=== PATIENT | female | born 1930 | race Caucasian/White ===

== ENCOUNTER → 2016-07-14 14:28 | Outpatient (CLI) | payer MEDICARE | END | disposition home or self-care (01) | LOC: D.CT 14:28 | DX: J18.9 Pneumonia, unspecified organism (principal) ==

== ENCOUNTER 2017-09-09 21:29 | Emergency (ER) | payer MEDICARE ==
[~2017-09-09] VITALS: Ht 162.6 cm; Wt 63.6 kg
[2017-09-09 21:53] VITALS: Ht 162.6 cm; Wt 63.6 kg
[2017-09-09] MEDS ORDERED: NORMODYNE / TR100 MG (21:56)
[2017-09-09] MEDS ORDERED: HYDROCHLOROTH12.5 M1 (21:56)
[2017-09-09] MEDS ORDERED: PRAVACHOL40 MG PO (21:56)
[2017-09-09] MEDS ORDERED: CATAPRES0.1 MG PO (21:56)
[2017-09-09] MEDS ORDERED: SYNTHROID25 MCG (21:57)
[2017-09-09] MEDS ORDERED: XANAX0.5 MG PO (21:57)
[2017-09-09] MEDS ORDERED: AMBIEN5 MG PO (21:57)
[2017-09-09 22:49] LABS: APPEARANCE CLEAR (CLEAR); BILIRUBIN NEGATIVE (NEGATIVE); COLOR YELLOW (YELLOW); GLUCOSE NEGATIVE (NEGATIVE); KETONE NEGATIVE (NEGATIVE); NITRITE NEGATIVE (NEGATIVE); PROTEIN NEGATIVE (NEGATIVE); RED CELLS - URINE OCC /hpf (0-5); UROBILINOGEN NORMAL (NORMAL); WHITE CELLS - URINE OCC /hpf (0-5)
[2017-09-10 01:31] VITALS: BP 164/87
== END 2017-09-10 01:31 | disposition home or self-care (01) ==
LOC: D.ER 21:29
PROVIDERS: Family Medicine
DX: T50.905A Adverse effect of unspecified drugs, medicaments and biological substances, initial encounter (principal); Y92.019 Unspecified place in single-family (private) house as the place of occurrence of the external cause; I10 Essential (primary) hypertension

== ENCOUNTER 2018-03-03 22:43 | Inpatient (IN) | payer MEDICARE ==
[~2018-03-03] VITALS: Ht 162.6 cm; Wt 50.0 kg
--- NOTE | ~2018-03-03 | EC ---
PATIENT:SUZANNE LUIS DATE OF SERVICE: 03/04/18 SEX: F MEDICAL RECORD: [id number] DATE OF : [birth year] LOCATION:D. D.120 AGE OF PATIENT: 87 ADMISSION DATE: 03/04/18 REFERRING PHYSICIAN: INTERPRETING PHYSICIAN: YONI ARIZA MD ECHOCARDIOGRAM REPORT ECHO CHARGES 4 ECHO COMPLETE Date: 03/04/18 CLINICAL DIAGNOSIS: PERICARDIAL EFFUSION ECHOCARDIOGRAPHIC MEASUREMENTS (adult normal given) AC root (d.<3.7cm) 3.1 cm LV Septum d (<1.2 cm> 1.4 cm Valve Excursion 1.7 cm LV Septum (systole) 1.9 cm Left Atria (s.<4.0cm> 4.3 cm LVPW d(<1.2cm) 1.3 cm RV (d.<2.3cm) 1.6 cm LVPW (sytole) 2.1 cm LV diastole(<5.6CM) 4.9 cm MV E-F(>70mm/sec) cm LV systole 2.2 cm LVOT Diameter 1.5 cm MV exc.(>10mm) cm Est.ejection fraction (50-75%) % DOPPLER: LVIT cm/sec A 42.0 cm/sec E 104 cm/sec LA cm/sec RVSP 41.0 mmHg LVOT 144 cm/sec AOP1/2T m/s Asc. Ao 169 cm/sec RVOT 93.0 cm/sec RA cm/sec PA 106 cm/sec AV Gradient Peak 11.4 mmHg AV Mean 5.0 mmHg AV Area 1.5 cm MV Gradient Peak 4.5 mmHg MV Mean 1.3 mmHg MV Area cm COMMENTS: Parking Worker: Wai CALDERONOE Art Historian: 1 Dr. Ariza TAPE# PACS Pericardial Effusion N DATE OF SERVICE: 03/04/2018 PROCEDURE: Echocardiogram. FINDINGS: 1. Left ventricular chamber size is within normal limits. Left ventricular systolic function is normal. Overall ejection fraction estimated at 65%. 2. Left atrium is enlarged at 4.3 cm. Right atrium and right ventricle chamber sizes are within normal limits. 3. Valvular structures have normal structure and motion. ECHOCARDIOGRAM REPORT [id number] SUZANNE LUIS 4. Doppler interrogation reveals mild aortic insufficiency, moderate mitral regurgitation, mild tricuspid regurgitation, no other valvular insufficiency or stenosis. Pulmonary systolic pressure is estimated 41 mmHg. 5. No evidence of pericardial effusion or left ventricular thrombus. TRANSINT:[id number] Voice Confirmation ID: [id number] DOCUMENT ID: [id number] YONI ARIZA MD at 1457 CC: [id number] DICTATION DATE: 03/05/18904 SENIOR GAME DESIGNER: 03/05/18 1020 DIS IN 03/05/18 [place] [address] [place] [address]
--- NOTE | ~2018-03-03 | MORECARE ---
CASE MANAGEMENT DISCHARGE SUMMARY PATIENT: SUZANNE LUIS UNIT: [id number] ADM DATE: 03/04/18 AGE: 87 : [birth year] SEX: F ROOM/BED: D.1209 AUTHOR: TOMÁS AVERY PHYSICIAN: REFERRING PHYSICIAN: GA JACQUES MD DATE OF SERVICE: 03/08/18 Discharge Plan Patient Name: SUZANNE LUIS Facility: [facility]:[place] : 1930 Planned Disposition: Home Anticipated Discharge Date: 03/05/18 Discharge Date: 03/05/2018 Expected LOS: 1 Initial Reviewer: [email or web address] Initial Review Date: 03/08/2018 Generated: 03/08/18 11:18 am Patient Name: SUZANNE LUIS Page 23539 at 1018 All edits/amendments must be made on the electronic document DICTATION DATE: 03/08/18 1017 BAKERY TEAM LEADER: MILANA 03/08/18 1017 RPT#: [id number] DC DATE:03/05/18 STATUS: DIS IN [facility] [address] [place] [address] END OF REPORT
[~2018-03-03 22:43] MED LIST: AMBIEN5 MG PO; CATAPRES0.1 MG PO; HYDROCHLOROTH12.5 M1; NORMODYNE / TR100 MG; PRAVACHOL40 MG PO; SYNTHROID25 MCG; XANAX0.5 MG PO
[2018-03-04] VITALS (10 sets, daily range): BP systolic 137–194; BP diastolic 52–86; Ht 162.6 cm; Wt 50.0 kg
[2018-03-04 00:21] LABS: BASOPHILS 0.2 % (0-2); EOSINOPHILS 0.2 % (0-7); HEMATOCRIT 35.2 % (36.0-48.0); HEMOGLOBIN 12.6 g/dL (12-16); IMMATURE GRANULOCYTES 0.2 % (0-5); LYMPHOCYTES 17.5 % (15-50); MCH 31.9 pg (26.0-34.0); MCHC 35.8 g/dL (31.0-37.0); MCV 89.1 fL (80.0-100.0); MEAN PLATELET VOLUME 10.7 fL (7.4-10.4); MONOCYTES 8.1 % (2-11); NEUTROPHILS 73.8 % (40-80); RBC 3.95 10x6/uL (4.00-5.40); RDW 12.7 % (11.5-14.5); WBC 5.1 10x3/uL (4.8-10.8)
[2018-03-04 00:23] LABS: PLATELET COUNT 234 10x3/uL (130-400)
[2018-03-04 00:35] LABS: ALBUMIN 3.6 g/dL (3.4-5.0); ANION GAP 13.5 mmol/L (8-16); BILIRUBIN - TOTAL 0.48 mg/dL (0.2-1.3); CALCIUM 9.2 mg/dL (8.5-10.1); CARBON DIOXIDE 24.1 mmol/L (21.0-32.0); CREATININE - SERUM 0.9 mg/dL (0.6-1.3); POTASSIUM - SERUM 3.6 mmol/L (3.5-5.1); PROTEIN - SERUM 7.2 g/dL (6.4-8.2)
[2018-03-04 00:37] LABS: INR 0.97 (0.85-1.17); PROTIME 12.4 SECONDS (11.6-15.0)
[2018-03-04 01:16] LABS: APPEARANCE CLEAR (CLEAR); BILIRUBIN NEGATIVE (NEGATIVE); COLOR YELLOW (YELLOW); GLUCOSE 50 mg/dL (NEGATIVE); KETONE MODERATE mg/dL (NEGATIVE); NITRITE NEGATIVE (NEGATIVE); PROTEIN NEGATIVE (NEGATIVE); SPECIFIC GRAVITY 1.015 (1.005-1.020); UROBILINOGEN NORMAL (NORMAL)
[2018-03-04 09:51] LABS: ANION GAP 13.6 mmol/L (8-16); CALCIUM 8.7 mg/dL (8.5-10.1); CARBON DIOXIDE 24.8 mmol/L (21.0-32.0); CREATININE - SERUM 0.9 mg/dL (0.6-1.3); POTASSIUM - SERUM 3.4 mmol/L (3.5-5.1)
[2018-03-05] VITALS: BP 124/47
[2018-03-05 04:00] VITALS: BP 154/63
[2018-03-05 07:25] VITALS: BP 102/60
[2018-03-05 07:27] LABS: BASOPHILS 0.3 % (0-2); EOSINOPHILS 0.2 % (0-7); HEMATOCRIT 31.9 % (36.0-48.0); HEMOGLOBIN 10.9 g/dL (12-16); IMMATURE GRANULOCYTES 0.3 % (0-5); LYMPHOCYTES 23.5 % (15-50); MCH 31.1 pg (26.0-34.0); MCHC 34.2 g/dL (31.0-37.0); MCV 90.9 fL (80.0-100.0); MEAN PLATELET VOLUME 10.7 fL (7.4-10.4); MONOCYTES 15.9 % (2-11); NEUTROPHILS 59.8 % (40-80); PLATELET COUNT 224 10x3/uL (130-400); RBC 3.51 10x6/uL (4.00-5.40); RDW 13.5 % (11.5-14.5); WBC 5.8 10x3/uL (4.8-10.8)
[2018-03-05 07:48] LABS: ANION GAP 11.7 mmol/L (8-16); CALCIUM 8.5 mg/dL (8.5-10.1); CARBON DIOXIDE 25.5 mmol/L (21.0-32.0); CREATININE - SERUM 0.8 mg/dL (0.6-1.3); POTASSIUM - SERUM 3.2 mmol/L (3.5-5.1)
[2018-03-05 11:32] VITALS: BP 142/46
[2018-03-05] MEDS ORDERED: PROTONIX40 MG PO (13:23)
[2018-03-05] MEDS ORDERED: MIRALAX17 GM PO (13:23)
== END 2018-03-05 14:40 | disposition home or self-care (01) | DRG 641 ==
LOC: D.ER 22:43 → D.M3 03-04 01:26 → OBSVTIME 03-04 01:26 → D.M3 03-04 12:42
PROVIDERS: Emergency Medicine; Internal Medicine Nephrology
DX: E87.1 Hypo-osmolality and hyponatremia (principal); I31.3 Pericardial effusion (noninflammatory); T47.4X5A Adverse effect of other laxatives, initial encounter; I10 Essential (primary) hypertension; R73.9 Hyperglycemia, unspecified; K21.9 Gastro-esophageal reflux disease without esophagitis; K57.90 Diverticulosis of intestine, part unspecified, without perforation or abscess without bleeding; K59.09 Other constipation; E03.9 Hypothyroidism, unspecified; D64.9 Anemia, unspecified

== ENCOUNTER 2018-06-27 00:12 | Observation (INO) | payer MEDICARE ==
[2018-06-27] VITALS (8 sets, daily range): BP systolic 115–195; BP diastolic 57–82; BMI 18.9
[~2018-06-27 00:12] MED LIST changes: +MIRALAX17 GM PO; -NORMODYNE / TR100 MG; +NORMODYNE / TR100 MG PO; +PROTONIX40 MG PO; -SYNTHROID25 MCG; +SYNTHROID25 MCG PO
[2018-06-27 00:53] LABS: HEMATOCRIT 34.7 % (36.0-48.0); HEMOGLOBIN 11.7 g/dL (12-16); LYMPHOCYTES 28.7 % (15-50); MCH 31.9 pg (26.0-34.0); MCHC 33.7 g/dL (31.0-37.0); MCV 94.6 fL (80.0-100.0); MEAN PLATELET VOLUME 10.3 fL (7.4-10.4); NEUTROPHILS 59.4 % (40-80); PLATELET COUNT 181 10x3/uL (130-400); RBC 3.67 10x6/uL (4.00-5.40); WBC 5.8 10x3/uL (4.8-10.8)
[2018-06-27 01:13] LABS: APTT 27.6 SECONDS (22.8-39.4); INR 0.98 (0.85-1.17); PROTIME 12.5 SECONDS (11.6-15.0)
[2018-06-27 01:19] LABS: ALBUMIN 3.4 g/dL (3.4-5.0); ALKALINE PHOSPHATASE 57 U/L (46-116); ALT (SGPT) 14 U/L (10-68); BILIRUBIN - TOTAL 0.18 mg/dL (0.2-1.3); CALC OSMOLALITY 283 mosm/kg (275-300); CARBON DIOXIDE 29.8 mmol/L (21.0-32.0); CHLORIDE - SERUM 103 mmol/L (98-107); CREATININE - SERUM 1.1 mg/dL (0.6-1.3); GLUCOSE 111 mg/dL (74-106); POTASSIUM - SERUM 3.6 mmol/L (3.5-5.1); PROTEIN - SERUM 6.9 g/dL (6.4-8.2); SODIUM 141 mmol/L (136-145); UREA NITROGEN 17 mg/dL (7-18); eGFR NON AFRICAN AMERICAN 50 mL/min (90-120)
[2018-06-27 01:30] LABS: CKMB 0.4 U/L (0.0-3.6); CREATINE KINASE 53 UL (21-215); MAGNESIUM - SERUM 2.3 mg/dL (1.8-2.4); THYROID STIMULATING HORMONE 5.95 uIU/mL (0.36-3.74)
[2018-06-27 01:31] LABS: TROPONIN-I < 0.017 ng/mL (0.000-0.060)
[2018-06-27 07:23] LABS: ALBUMIN 3.3 g/dL (3.4-5.0); ALKALINE PHOSPHATASE 52 U/L (46-116); ALT (SGPT) 11 U/L (10-68); BILIRUBIN - TOTAL 0.32 mg/dL (0.2-1.3); CALC OSMOLALITY 279 mosm/kg (275-300); CALCIUM 8.8 mg/dL (8.5-10.1); CARBON DIOXIDE 28.4 mmol/L (21.0-32.0); CHLORIDE - SERUM 104 mmol/L (98-107); GLUCOSE 116 mg/dL (74-106); POTASSIUM - SERUM 4.1 mmol/L (3.5-5.1); PROTEIN - SERUM 6.6 g/dL (6.4-8.2); SODIUM 139 mmol/L (136-145); UREA NITROGEN 15 mg/dL (7-18); eGFR NON AFRICAN AMERICAN 55 mL/min (90-120)
[2018-06-27 07:25] LABS: TROPONIN-I < 0.017 ng/mL (0.000-0.060)
[2018-06-27 07:31] LABS: BASOPHILS 0.1 % (0-2); EOSINOPHILS 0.6 % (0-7); HEMATOCRIT 33.6 % (36.0-48.0); HEMOGLOBIN 11.2 g/dL (12-16); IMMATURE GRANULOCYTES 0.1 % (0-5); LYMPHOCYTES 14.1 % (15-50); MCH 30.9 pg (26.0-34.0); MCHC 33.3 g/dL (31.0-37.0); MCV 92.8 fL (80.0-100.0); MEAN PLATELET VOLUME 11.2 fL (7.4-10.4); MONOCYTES 9.6 % (2-11); NEUTROPHILS 75.5 % (40-80); PLATELET COUNT 207 10x3/uL (130-400); RBC 3.62 10x6/uL (4.00-5.40); RDW 13.1 % (11.5-14.5)
[2018-06-27] MEDS ORDERED: NORMODYNE / TR100 MG PO (12:39)
[2018-06-28 00:47] VITALS: BP 143/52
[2018-06-28 04:00] VITALS: BP 142/50
[2018-06-28 07:07] LABS: BASOPHILS 0.4 % (0-2); HEMATOCRIT 35.3 % (36.0-48.0); HEMOGLOBIN 11.7 g/dL (12-16); LYMPHOCYTES 41.8 % (15-50); MCH 31.2 pg (26.0-34.0); MCHC 33.1 g/dL (31.0-37.0); MCV 94.1 fL (80.0-100.0); MEAN PLATELET VOLUME 10.9 fL (7.4-10.4); MONOCYTES 12.9 % (2-11); NEUTROPHILS 42.9 % (40-80); PLATELET COUNT 215 10x3/uL (130-400); RBC 3.75 10x6/uL (4.00-5.40); RDW 13.5 % (11.5-14.5)
[2018-06-28 07:25] LABS: ALBUMIN 3.3 g/dL (3.4-5.0); ANION GAP 9.3 mmol/L (8-16); BILIRUBIN - TOTAL 0.52 mg/dL (0.2-1.3); CALCIUM 8.8 mg/dL (8.5-10.1); CARBON DIOXIDE 30.4 mmol/L (21.0-32.0); POTASSIUM - SERUM 3.7 mmol/L (3.5-5.1); PROTEIN - SERUM 6.8 g/dL (6.4-8.2)
[2018-06-28] MEDS ORDERED: ASPIRIN325 MG PO (13:43)
[2018-06-28] MEDS ORDERED: HCTZ25 MG PO (13:44)
--- NOTE | 2018-06-29 08:51 | MORECARE ---
CASE MANAGEMENT DISCHARGE SUMMARY PATIENT: SUZANNE LUIS UNIT: [id number] ADM DATE: 06/27/18 AGE: 87 : [birth year] SEX: F ROOM/BED: D.5350 AUTHOR: TOMÁS AVERY PHYSICIAN: REFERRING PHYSICIAN: GA JACQUES MD DATE OF SERVICE: 06/29/18 Discharge Plan Patient Name: SUZANNE LUIS Facility: [facility]:[place] : 1930 Planned Disposition: Home Anticipated Discharge Date: 06/28/18 Discharge Date: 06/28/2018 Expected LOS: 1 Initial Reviewer: [email or web address] Initial Review Date: 06/29/2018 Generated: 06/29/18 9:50 am Coverage Notice Reviewer: [email or web address] Shanika Connell Notice Issued Date-Time: 06/27/2018 16:27 Notice Type: Medicare Outpatient Observation Notice Notice Delivered To: Family Member Relationship to Patient: Spouse Processing Engineer Name: ALICE LUIS Delivery Method: HAND - Hand Delivered Maryjane Days: Prior Verbal Notification: Recipient Understood Notice: Yes Recipient Signature: Yes Med Rec Note Co-signed by Attending: Coverage Notice Comment: PER PATIENTS REQUEST, CINDY DISCUSSED WITH HER SPOUSE . PT UNABLE TO UNDERSTAND ME SECONDARY TO DEGREE OF UPPER [place] WITH NO ASSISTIVE DEVICES Patient Name: SUZANNE LUIS Page 06375 at 0851 All edits/amendments must be made on the electronic document DICTATION DATE: 06/29/1850 CAN WASHER: DM 06/29/1850 RPT#: [id number] DC DATE:06/28/18 STATUS: DIS IN [facility] [address] [place] [address] END OF REPORT
== END 2018-06-28 15:48 | disposition home or self-care (01) ==
LOC: D.ER 00:12 → D.M2 03:24
PROVIDERS: Family Medicine; ADMIT Internal Medicine Nephrology
DX: R51 Headache (principal); I10 Essential (primary) hypertension; E03.9 Hypothyroidism, unspecified; K59.00 Constipation, unspecified; R47.89 Other speech disturbances; R11.0 Nausea; F41.9 Anxiety disorder, unspecified; K21.9 Gastro-esophageal reflux disease without esophagitis

== ENCOUNTER 2018-08-10 18:25 | Observation (INO) | payer MEDICARE ==
[~2018-08-10] VITALS: Ht 157.5 cm; Wt 48.6 kg
--- NOTE | ~2018-08-10 | DS ---
PATIENT:SUZANNE LUIS :[birth year] MEDICAL RECORD: [id number] DISCHARGE SUMMARY ADMISSION DATE: 08/10/18 DISCHARGE DATE: 08/11/18 DISCHARGE DIAGNOSES: 1. Tachycardia. 2. Palpitations. 3. Hypertension. 4. Irritable bowel syndrome. HOSPITAL COURSE: Ms. Luis presents with palpitations and tachycardia. She was recently started on Bentyl for her irritable bowel syndrome. This is a side effect of the Bentyl. She was given Lopressor times 2 doses. Her tachycardia resolved and she was discharged home to continue her current medications with the exception of the Bentyl. TRANSINT:[id number] Voice Confirmation ID: [id number] DOCUMENT ID: [id number] YONI HINES MD CC: [id number] DICTATION DATE: 08/11/18 1153 SENIOR COMPLIANCE OFFICER: 08/12/18 0119 DIS IN 08/11/18 [facility] [address] [place] [address]
--- NOTE | ~2018-08-10 | HP ---
PATIENT: SUZANNE CORRIGAN MEDICAL RECORD: [id number] ACCOUNT: [id number] LOCATION:[address] : [birth year] ADMISSION DATE: 08/10/18 PCP: JANET HWANG MD HISTORY AND PHYSICAL EXAMINATION DATE OF ADMISSION: 08/10/2018. DIAGNOSES: 1. Palpitations. 2. Tachycardia. 3. Chest pain. 4. Hypertension. 5. Irritable bowel syndrome. HISTORY OF PRESENT ILLNESS: Mrs. Corrigan is followed by us for hypertension. She has not had a history of ischemic heart disease. For the past 2 days, she has had tachycardia with heart rates in the 130s. This has been associated with a minor chest discomfort. Her troponin is normal. Her EKG shows sinus tachycardia, but no ST-T abnormalities. She was recently started on Bentyl for irritable bowel syndrome 2 days ago. This correlated with the beginning of the tachycardia. PHYSICAL EXAMINATION: GENERAL APPEARANCE: Well-nourished, well-developed, appears stated age. Level of distress, comfortable. PSYCHIATRIC: Mental status, alert, normal affect. Orientation, oriented to time, place and person. EYES: Lids and conjunctiva, noninjected. No discharge, no pallor. ENT: Lips, teeth, gums, normal dentition. Oropharynx, no cyanosis, no pallor. NECK: Carotid arteries, bilateral normal upstroke, no bruits, no thrills. JUGULAR VEINS: No jugular venous pressure or distention. CERVICAL LYMPH NODES: Nontender, nonenlarged. THYROID: Not enlarged. Nontender. No nodules. LUNGS: Respiratory effort, unlabored. CHEST: Normal curvature. No thoracic deformity. No chest wall tenderness. Percussion, resonant. Auscultation, clear. No wheezes, no rales, no rhonchi. CARDIOVASCULAR: Precordial exam, nondisplaced. No heaves or pericardial thrills. Rate and rhythm, regular. Heart sounds, normal S1, normal S2. No S3, no gallop, no rub. Systolic murmur, not heard. Diastolic murmur, not heard. EXTREMITIES: No cyanosis, no edema. Peripheral pulses, full and equal in all extremities, except as noted. No bruits appreciated. ABDOMEN: Soft, nondistended. Normal aorta. No bruit. Nontender. No masses. Liver, nontender, no hepatomegaly. Spleen, nontender, no splenomegaly. MUSCULOSKELETAL: No joint tenderness. No joint swelling. No erythema. NEUROLOGICAL: Normal gait, normal strength, normal tone. SKIN: Warm and dry. OVERALL IMPRESSION: Tachycardia as a side effect of the Bentyl. Her troponin is normal. No ST-T changes. We will beta block her to solve the tachycardia and stop the Bentyl. TRANSINT:[id number] Voice Confirmation ID: [id number] DOCUMENT ID: [id number] HISTORY AND PHYSICAL [id number] SUZANNE CORRIGAN JEFFREY MD CC: [id number] DICTATION DATE: 08/11/18 1152 JUKEBOX OPERATOR: 08/11/18 1214 DIS IN 08/11/18 [place] [id number] [place] [id number]
[~2018-08-10 18:25] MED LIST changes: +ASPIRIN325 MG PO; +HCTZ25 MG PO
[2018-08-10 18:54] LABS: HEMATOCRIT 37.7 % (36.0-48.0); HEMOGLOBIN 12.7 g/dL (12-16); MCH 31.6 pg (26.0-34.0); MCHC 33.7 g/dL (31.0-37.0); MCV 93.8 fL (80.0-100.0); MEAN PLATELET VOLUME 10.6 fL (7.4-10.4); PLATELET COUNT 201 10x3/uL (130-400); RBC 4.02 10x6/uL (4.00-5.40); RDW 13.5 % (11.5-14.5); WBC 5.4 10x3/uL (4.8-10.8)
[2018-08-10 19:07] LABS: ALBUMIN 3.6 g/dL (3.4-5.0); ALKALINE PHOSPHATASE 56 U/L (46-116); ALT (SGPT) 15 U/L (10-68); BILIRUBIN - TOTAL 0.22 mg/dL (0.2-1.3); CALC OSMOLALITY 273 mosm/kg (275-300); CALCIUM 9.3 mg/dL (8.5-10.1); CARBON DIOXIDE 29.3 mmol/L (21.0-32.0); CHLORIDE - SERUM 102 mmol/L (98-107); CREATININE - SERUM 1.1 mg/dL (0.6-1.3); GLUCOSE 98 mg/dL (74-106); POTASSIUM - SERUM 4.5 mmol/L (3.5-5.1); SODIUM 136 mmol/L (136-145); UREA NITROGEN 17 mg/dL (7-18); eGFR NON AFRICAN AMERICAN 50 mL/min (90-120)
[2018-08-10 19:09] LABS: APTT 27.8 SECONDS (22.8-39.4); INR 1.01 (0.85-1.17); PROTIME 12.8 SECONDS (11.6-15.0)
--- NOTE | 2018-08-10 19:11 | NUR ---
EKG COMPLETED AT 1837 - SINUS TACHYCARDIA
[2018-08-10 19:19] LABS: CKMB 0.6 U/L (0.0-3.6); CREATINE KINASE 70 UL (21-215); MAGNESIUM - SERUM 2.3 mg/dL (1.8-2.4)
[2018-08-10 19:21] LABS: TROPONIN-I < 0.017 ng/mL (0.000-0.060)
--- NOTE | 2018-08-10 19:23 | NUR ---
PT GIVEN WATER TO DRINK.
[2018-08-10 19:27] LABS: BASOPHILS 1 % (0-2); EOSINOPHILS 6 % (0-7); LYMPHOCYTES 22 % (15-50); MONOCYTES 18 % (2-11); NEUTROPHILS 53 % (40-80); PLATELET ESTIMATE NORMAL
[2018-08-10 19:30] VITALS: BP 158/117
[2018-08-10 19:45] LABS: T4 THYROXIN - FREE 0.98 ng/dL (0.76-1.46); THYROID STIMULATING HORMONE 5.19 uIU/mL (0.36-3.74)
[2018-08-10 20:30] VITALS: BP 154/95
--- NOTE | 2018-08-10 20:41 | NUR ---
PT AMBULATED TO RESTROOM WITH NURSE ASSIST.
[2018-08-10 22:51] VITALS: BP 139/84; Ht 157.5 cm; Wt 48.6 kg
[2018-08-11 00:30] VITALS: BP 139/84
[2018-08-11 03:44] LABS: CKMB 1.3 U/L (0.0-3.6); CREATINE KINASE 54 UL (21-215); TROPONIN-I 0.027 ng/mL (0.000-0.060)
[2018-08-11 05:30] VITALS: BP 109/63
[2018-08-11 08:02] VITALS: BP 101/76
[2018-08-11 09:09] LABS: CREATINE KINASE 53 UL (21-215); TROPONIN-I 0.039 ng/mL (0.000-0.060)
--- NOTE | 2018-08-11 10:55 | MORECARE ---
CASE MANAGEMENT DISCHARGE SUMMARY PATIENT: SUZANNE LUIS UNIT: [id number] ADM DATE: 08/10/18 AGE: 87 : [birth year] SEX: F ROOM/BED: D.8510 AUTHOR: TOMÁS AVERY PHYSICIAN: REFERRING PHYSICIAN: YONI HINES MD DATE OF SERVICE: 08/11/18 Discharge Plan Patient Name: SUZANNE LUIS Facility: [facility]:[place] : 1930 Planned Disposition: Home Anticipated Discharge Date: 08/11/18 Discharge Date: Expected LOS: 1 Initial Reviewer: [email or web address] Initial Review Date: 08/11/2018 Generated: 08/11/18 11:55 am Patient Name: SUZANNE LUIS Page 24241 at 1055 All edits/amendments must be made on the electronic document DICTATION DATE: 08/11/18 1054 CREDIT RATING INSPECTOR: MILANA 08/11/18 1054 RPT#: [id number] DC DATE: STATUS: ADM IN [facility] [address] [place] [address] END OF REPORT
--- NOTE | 2018-08-11 11:52 | NUR ---
IV AND TELEMETRY DCD. DC PLANS GIVEN. UNDERSTANDING VOICED. ESCORTED TO CAR BY W/C.
== END 2018-08-11 11:53 | disposition home or self-care (01) ==
LOC: D.ER 18:25 → D.M2 21:51 → OBSVTIME 21:51 → D.M2 21:51 → D.SDCHOLD 08-11 09:41 → D.M2 08-11 09:43
PROVIDERS: Emergency Medicine; ADMIT Internal Medicine Interventional Cardiology; ATTEND Internal Medicine Interventional Cardiology
DX: R00.2 Palpitations (principal); R00.0 Tachycardia, unspecified; R07.9 Chest pain, unspecified; I10 Essential (primary) hypertension; K58.9 Irritable bowel syndrome, unspecified

== ENCOUNTER 2018-09-22 11:50 | Emergency (ER) | payer MEDICARE ==
[~2018-09-22] VITALS: Ht 157.5 cm; Wt 48.6 kg
[2018-09-22 11:56] VITALS: Ht 157.5 cm; Wt 48.6 kg
[2018-09-22 12:21] LABS: BASOPHILS 0.8 % (0-2); EOSINOPHILS 4.4 % (0-7); HEMATOCRIT 35.5 % (36.0-48.0); HEMOGLOBIN 12.1 g/dL (12-16); IMMATURE GRANULOCYTES 0.2 % (0-5); LYMPHOCYTES 28.7 % (15-50); MCH 31.8 pg (26.0-34.0); MCHC 34.1 g/dL (31.0-37.0); MCV 93.2 fL (80.0-100.0); MEAN PLATELET VOLUME 10.9 fL (7.4-10.4); MONOCYTES 13.9 % (2-11); PLATELET COUNT 213 10x3/uL (130-400); RBC 3.81 10x6/uL (4.00-5.40); RDW 14.3 % (11.5-14.5)
[2018-09-22 12:35] LABS: ALBUMIN 3.5 g/dL (3.4-5.0); ALKALINE PHOSPHATASE 56 U/L (46-116); ALT (SGPT) 17 U/L (10-68); BILIRUBIN - TOTAL 0.32 mg/dL (0.2-1.3); CALC OSMOLALITY 274 mosm/kg (275-300); CALCIUM 9.4 mg/dL (8.5-10.1); CARBON DIOXIDE 27.6 mmol/L (21.0-32.0); CHLORIDE - SERUM 103 mmol/L (98-107); GLUCOSE 120 mg/dL (74-106); POTASSIUM - SERUM 4.8 mmol/L (3.5-5.1); PROTEIN - SERUM 6.8 g/dL (6.4-8.2); SODIUM 136 mmol/L (136-145); UREA NITROGEN 17 mg/dL (7-18); eGFR NON AFRICAN AMERICAN 55 mL/min (90-120)
[2018-09-22 12:46] LABS: CKMB 0.4 U/L (0.0-3.6); CREATINE KINASE 61 UL (21-215); MAGNESIUM - SERUM 2.3 mg/dL (1.8-2.4); THYROID STIMULATING HORMONE 2.24 uIU/mL (0.36-3.74); TROPONIN-I < 0.017 ng/mL (0.000-0.060)
[2018-09-22 12:52] LABS: APTT 26.6 SECONDS (22.8-39.4); INR 0.98 (0.85-1.17); PROTIME 12.5 SECONDS (11.6-15.0)
[2018-09-22] MEDS ORDERED: BAYER CHEWABLE81 MG PO (13:07)
[2018-09-22 14:18] VITALS: BP 156/68
== END 2018-09-22 14:19 | disposition home or self-care (01) ==
LOC: D.ER 11:50
PROVIDERS: Family Medicine
DX: F41.9 Anxiety disorder, unspecified (principal); G81.94 Hemiplegia, unspecified affecting left nondominant side; R00.1 Bradycardia, unspecified

== ENCOUNTER 2018-09-23 18:46 | Inpatient (IN) | payer MEDICARE ==
[2018-09-23] VITALS (9 sets, daily range): BP systolic 111–185; BP diastolic 68–120
[~2018-09-23] VITALS: Ht 157.5 cm; Wt 52.2 kg
--- NOTE | ~2018-09-23 | HEMODYNAMI ---
PATIENT:SUZANNE LUIS MEDICAL RECORD: [id number] : [birth year] [id number] ADMISSION DATE: 09/23/18 Generatedon:09/28/201814:33 Patient name: SUZANNE LUIS Patient #: [id number] SSN: : 1930 Date of study: 09/28/2018 Page: Of Hemodynamic Procedure Report Patient Data Patient Demographics Procedure consent was obtained First Name: SUZANNE Gender: Female Last Name: JANELLE : 1930 Middle Initial: M Age: 87 year(s) Patient #: [id number] Race: Unknown Additional ID: [id number] Contact details Address: [address] [place] [address] State: [place] City: [facility] Zip code: [address] Past Medical History Allergies Allergen Reaction Date Comments Reported Other allergy 09/28/2018 AMANDA WELLS Admission Admission Data Admission Date: 09/23/2018 Admission Time: 22:11 Room #: D.2311 Lab Results Lab Result Date: 09/28/2018 Lab Result Time: 1:00 Biochemistry Name Units Result Min Max eGFR ml/min 50 *-(----)-- 90 120 NONAFRICAN Procedure Procedure Types Cath Procedure Diagnostic Procedure PPM/ICD PPM Ventricular Implant Procedure Description Procedure Date Procedure Date: 09/28/2018 Procedure Start Time: 14:09 Procedure End Time: 14:31 Procedure Staff Name Function Julio Mccray MD Performing Physician Patrick Lynn MD Assisting physician Cory Hoffman RT Monitor Mag Reid RT Scrub Santhosh Nuñez RN Nurse Procedure Data Cath Procedure Fluoroscopy Diagnostic fluoroscopy Total fluoroscopy Time: 1.8 time: 1.8 min min Diagnostic fluoroscopy Total fluoroscopy dose: dose: 13.39 mGy 13.39 mGy Contrast Material Contrast Material Type Amount (ml) Isovue 370 0 Estimated blood loss: 5 ml Procedure Complications No complications Procedure Medications Medication Administration Route Dosage Oxygen etCO2 Nasal cannula 2 l/min Vancomycin I.V.P.B 1 g Vancomycin Topical 1 g Irrigation Lidocaine 1% added to field 20 Versed I.V. 1 mg Fentanyl I.V. 50 mcg Hemodynamics Rest HGB: 14 (g/dl) Heart Rate: 37 (bpm) Snapshots Pre Cath Intra NCS Post Cath Vital Signs Time Heart Resp SPO2 etCO2 NIBP Rhythm Pain Sedation Rate (ipm) (%) (mmHg) (mmHg) Status Level (bpm) 14:04:09 36 33 100 0 Measuring Paced (Missing) 10(A) 14:09:24 32 27 100 0 128/46(82) Paced (Missing) 10(A) 14:13:15 33 16 100 0 108/45(74) Paced (Missing) 9(A) 14:17:03 33 18 100 0 102/48(78) Paced (Missing) 9(A) 14:21:02 80 13 100 0 125/64(93) Paced (Missing) 9(A) 14:25:08 60 14 100 0 123/57(87) Paced (Missing) 9(A) 14:28:51 60 19 100 0 119/60(89) Paced (Missing) 10(A) Medications Time Medication Route Dose Verified Delivered Reason Notes Effecti veness by by 14:03:16 Oxygen etCO2 2 Julio Trevizo used for Nasal l/min St Asaf Nuñez financial quantitative analyst cannula 14:03:23 Vancomycin I.V.P.B 1 g Julio Buffie used for MahendraAsaf Nuñez financial quantitative analyst 14:03:31 Vancomycin Topical 1 g Julio Trevizo used for Irrigation St Asaf Nuñez RN procedure 14:05:03 Lidocaine added 20ml Patrick Nguyen for local 1% to vial Rosi Lynn MD anesthetic field 14:11:10 Versed I.V. 1 mg Patrick Trevizo for Rosi Nuñez RN sedation 14:11:16 Fentanyl I.V. 50 Patrick Joinerie for mcg Rosi Nuñez RN sedation Procedure Log Time Note 13:35:24 Santhosh Nuñez RN sent for patient. Start room use. 13:35:26 Time tracking: Regular hours (M-F 7:00 - 5:00) 13:35:30 Plan of Care:Hemodynamics will remain stable., Cardiac rhythm will remain stable., Comfort level will be maintained., Respiratory function will remain adequate., Patient/ family verbilizes understanding of procedure., Procedure tolerated without complication., Recovers from procedure without complications.. 13:35:31 Signed procedure consent form obtained from patient. 13:35:47 Patient allergic to Other allergyPCN, CODEINE 13:36:22 Lab Result : BUN 18 mg/dl 13:36:22 Lab Result : Hemoglobin 14 g/dl 13:36:22 Lab Result : Creatinine 1.1 mg/dl 13:36:22 Lab Result : Hematocrit 41.4 % 13:36:51 Lab Result : eGFR NONAFRICAN 50 ml/min 13:36:57 Use device set ROSI PPM 13:36:59 2-0 Ticron Multipack ([id number]) opened to sterile field. 13:36:59 3-0 Vicryl Single Pack [id number] opened to sterile field. 13:36:59 5-0 Monocryl PS2 [id number] opened to sterile field. 13:37:00 Cautery Tip Making Line Worker opened to sterile field. 13:37:01 Cautery Pushbutton Pencil opened to sterile field. 13:37:01 Mepilex Dressing (018091) opened to sterile field. 13:37:03 Immobilizer Extra Large opened to sterile field. 13:37:21 Medtronic Adapta PPM Single Generator [id number] opened to sterile field. 13:37:32 Medtronic 4074-52 PPM Lead opened to sterile field. 13:49:12 Patient received from ICU to [facility] 3 Alert and oriented. Tansferred to table in Supine position. 13:49:13 Warm blankets applied, and nikko hugger turned on for patient comfort. 13:49:14 Correct patient and procedure confirmed by team. 13:49:14 ECG and BP/O2 sat monitors applied to patient. 14:02:19 Vital chart was started 14:02:21 Baseline sample Acquired. 14:02:37 Rhythm: sinus bradycardia, paced 14:02:38 Full Disclosure recording started 14:02:47 H&P Date Dictated: 09/23/2018 Within 30 days and on chart.. 14:02:49 Pre-procedure instructions explained to patient. 14:02:49 Pre-op teaching completed and patient verbalized understanding. 14:02:52 Family in waiting room. 14:02:54 Patient NPO since Breakfast. 14:02:56 Is the patient allergic to Iodine/contrast media? No. 14:02:59 Is patient on blood thinner?No 14:03:16 Oxygen 2 l/min etCO2 Nasal cannula was administered by Santhosh Nuñez RN; used for procedure; 14:03:23 Vancomycin 1 g I.V.P.B was administered by Santhosh Nuñez RN; used for procedure; 14:03:31 Vancomycin Irrigation 1 g Topical was administered by Santhosh Nuñez RN; used for procedure; 14:03:56 ----Pre-sedation anethsthesia assessment.---- 14:04:00 Previous problem with sedation/anesthesia? No ? 14:05:03 Lidocaine 1% 20ml vial added to field was administered by Patrick Lynn MD; for local anesthetic; 14:05:30 Vital chart was stopped 14:06:06 Left chest area was prepped with chlora-prep and draped in sterile fashion 14:06:08 Alarms reviewed by R. N. 14:06:08 Sharps counted by scrub and verified by R.N. 14:06:24 Physician arrived 14:06:29 --------ALL STOP TIME OUT------ 14:06:29 Final Timeout: patient, procedure, and site verified with staff and physician. All members of the team are in agreement. 14:06:44 Left chest site verified by team. 14:07:03 Fire Safety Assessment: A--An alcohol-based skin anteseptic being used preoperatively., B--The operative or invasive procedure is being performed above the xiphoid process or in the oropharynx., C--Open oxygen or nitrous oxide is being used. 14:07:10 Physical assessment completed. ASA score P 4 - A patient with severe systemic disease that is a constant threat to life as per Julio Mccray MD. 14:07:32 Sedation plan: IV Moderate Sedation Medication:Versed, Fentanyl 14:08:05 Vital chart was started 14:08:19 Procedure started. 14:08:26 Local Offer Networktronic small business representative VINAYAK CORREA present for procedure. 14:09:25 Pre sharps counted by scrub and verified by RN: Sutures: 14; Sponges: 5; Stick needles: 1; Skin needles: 2; Blade: 1; Cautery: 1 14:09:34 Grounding pad site Left thigh. 14:09:36 Grounding pad site free from injury. 14:09:39 Lidocaine 1% was administered to left subclavicular area by Patrick Lynn MD . 14:09:40 Incision made to left subclavicular area. 14:11:10 Versed 1 mg I.V. was administered by Santhosh Nuñez RN; for sedation; 14:11:16 Fentanyl 50 mcg I.V. was administered by Santhosh Nuñez RN; for sedation; 14:13:28 Generator pocket made/opened. 14:13:32 Left subclavian vein accessed with 7Fr Peel Away Sheath. 14:14:13 Ventricular lead inserted and advanced. 14:17:42 Ventricular lead tested. 14:20:40 Peel-a-way sheath was split and removed. 14:20:41 Ventricular lead attachment was completed with 2-0 ticron. 14:20:44 PPM Single was attached to lead(s) and inserted into pocket. 14:20:55 Device pocket was irrigated with Vancomycin. 14:21:27 Generator was sutured in place with 2-0 ticron. 14:22:52 Parameters-- Generator: Mode: VVIR. Lower Rate: 60bpm. Upper Rate: 110bpm. 14:23:11 Parameters--Ventricular P/R Wave: 5.7mV. Current: 0.1mA; Threshold: 0.3V; Impedence: 1251OHMS. 14:23:19 Subcutaneous closure was completed with 3-0 vicryl plus. 14:25:16 Skin closure was completed with 5-0 monocryl. 14:26:44 Lt Chest incision was dressed with Mepilex dressing. 14:26:47 Procedure ended.(Physican Out) 14:28:26 Fluoroscopy time 01.80 minutes. 14::31 Fluoroscopy dose: 13.39 mGy 14::31 Flurop Dose total: 13.39 14:28:33 Contrast amount:Isovue 370 0ml. 14:28:36 Sharps counted by scrub and verified by R.N. 14:28:49 Post sharps counted by scrub and verified by RN: Sutures: 14; Sponges: 5; Stick needles: 1; Skin needles: 2; Blade: 1; Cautery: 1 14:29:15 Insertion/operative site no bleeding no hematoma. 14:29:22 Post left subclavian vein:stable, soft, clean and dry 14:29:27 Post-procedure physical assessment completed. ASA score P 4 - A patient with severe systemic disease that is a constant threat to life as per Julio Mccray MD. 14:30:04 Post procedure rhythm: sinus rhythm , paced 14:30:07 Estimated blood loss: 5 ml 14:30:08 Post procedure instruction explained to patient.Patient verbalizes understanding. 14:30:08 Patient needs reinforcement of post procedure teaching. 14:30:48 Procedure type changed to Cath procedure, Diagnostic procedure, PPM/ICD, PPM Ventricular Implant 14:31:30 Procedure and supply charges have been captured, reviewed, submitted and are correct. 14:31:33 Procedure Complication : No complications 14:31:35 See physician's report for complete and final results. 14:31:37 Report given to ICU. 14:31:40 Patient transfered to ICU with Stretcher. 14:31:44 Procedure ended. 14:31:44 Full Disclosure recording stopped 14:31:48 End room use (Document Last) 14:33:14 Vital chart was stopped Device Usage Item Name Manufacture Quantity Catalog Hospital Part Current Minimal Lot# / Serial# Number Charge Number Stock Stock Code 2-0 Ticron Ethicon 5 [id number] [id number] 34769 [id number] 5 Multipack ([id number]) 3-0 Vicryl Ethicon 1 [id number] 058354 128112 342091 5 Single Pack [id number] 5-0 Monocryl Ethicon 1 [id number] [id number] 589813 037689 5 PS2 Y495G Cautery Tip Microtek 1 [id number] 830935 933556 568337 5 Making Line [employer] Cautery Microtek 1 [id number] 82600 868031 5 Pushbutton [employer] Pencil Mepilex Cardinal 1 325622 452547 828351 572934 5 [facility] (486295) Immobilizer Cardinal 1 [id number] 400931 840720 215414 5 Extra Large Health Medtronic Medtronic 1 ADSR01 136971 168966 553795 5 [id number] Adapta PPM EXP:12/26/2019 Single [id number] Generator ADSR01 Medtronic Medtronic 1 4074-52 619305 553578 155335 5 [id number] 4074-52 PPM EXP:01/20/2020 Lead [id number] Signature Audit Steward[place] Stage Time Signature Unsigned Intra-Procedure 09/28/2018 Cory Hoffman 2:33:01 PM RT(R) Signatures Performing Physician : Signature : Julio Mccray MD Date : Time : Monitor : Cory Hoffman RT Signature : Date : Time : Nurse : Santhosh Nuñez RN Signature : Date : Time : [facility] [address] [place] [address]
[~2018-09-23 18:46] MED LIST changes: +BAYER CHEWABLE81 MG PO
--- NOTE | 2018-09-23 19:11 | NUR ---
REPORT FROM MILTON MORALES.
[2018-09-23 19:24] LABS: BASOPHILS 0.5 % (0-2); EOSINOPHILS 2.2 % (0-7); HEMOGLOBIN 13.2 g/dL (12-16); LYMPHOCYTES 42.6 % (15-50); MCHC 34.7 g/dL (31.0-37.0); MEAN PLATELET VOLUME 10.5 fL (7.4-10.4); MONOCYTES 13.4 % (2-11); NEUTROPHILS 41.3 % (40-80); PLATELET COUNT 212 10x3/uL (130-400); RBC 4.13 10x6/uL (4.00-5.40); RDW 14.3 % (11.5-14.5); WBC 5.8 10x3/uL (4.8-10.8)
[2018-09-23 19:33] LABS: APTT 26.2 SECONDS (22.8-39.4); INR 1.03 (0.85-1.17)
--- NOTE | 2018-09-23 19:33 | NUR ---
PT PLACED ON BED CHRISTIAN AT THIS TIME. URINE X 1
[2018-09-23 19:39] LABS: ALBUMIN 3.7 g/dL (3.4-5.0); ALKALINE PHOSPHATASE 62 U/L (46-116); ALT (SGPT) 21 U/L (10-68); BILIRUBIN - TOTAL 0.28 mg/dL (0.2-1.3); CALC OSMOLALITY 283 mosm/kg (275-300); CALCIUM 9.2 mg/dL (8.5-10.1); CHLORIDE - SERUM 104 mmol/L (98-107); GLUCOSE 145 mg/dL (74-106); SODIUM 139 mmol/L (136-145); UREA NITROGEN 20 mg/dL (7-18)
[2018-09-23 19:40] LABS: CREATININE - SERUM 1.3 mg/dL (0.6-1.3); POTASSIUM - SERUM 3.9 mmol/L (3.5-5.1); eGFR NON AFRICAN AMERICAN 41 mL/min (90-120)
[2018-09-23 19:51] LABS: CKMB 0.6 U/L (0.0-3.6); CREATINE KINASE 65 UL (21-215); MAGNESIUM - SERUM 2.3 mg/dL (1.8-2.4); THYROID STIMULATING HORMONE 4.06 uIU/mL (0.36-3.74); TROPONIN-I 0.027 ng/mL (0.000-0.060)
[2018-09-23 20:06] LABS: APPEARANCE CLEAR (CLEAR); BACTERIA MODERATE /hpf (NONE SEEN); BILIRUBIN NEGATIVE (NEGATIVE); COLOR STRAW (YELLOW); GLUCOSE NEGATIVE (NEGATIVE); KETONE NEGATIVE (NEGATIVE); NITRITE NEGATIVE (NEGATIVE); PROTEIN NEGATIVE (NEGATIVE); UROBILINOGEN NORMAL (NORMAL); WHITE CELLS - URINE 0-5 /hpf (0-5)
--- NOTE | 2018-09-23 21:08 | NUR ---
PT UP TO BEDSIE COMMODE URINE X 1
[2018-09-24] VITALS: BP 119/72
--- NOTE | 2018-09-24 00:15 | NUR ---
ADMIT TO ROOM 2117 FROM ER. ALERT/ORIENTED. VERY NONDALTON. ACCOMPANIED BY SPOUSE. ADMISSION HISTORY AND ASSESSMENT COMPLETED. HOME MEDS REVIEWED. PT VERY NERVOUS AND WITH HIGH LEVEL OF ANXIETY. SHE WAS MEDICATED X 1 WHILE IN ER FOR HER ANXIETY. 104/FLUTTER PER TELEMETRY. EDUCATION ABOUT CARDIZEM DRIP PROVIDED. PLAN OF CARE INITIATED.
[2018-09-24 00:41] VITALS: BP 129/75
--- NOTE | 2018-09-24 06:57 | NUR ---
AM EKG SHOWS SR WITH 1ST DEGREE BLOCK. PT CONTINUES ON CARDIZEM AT 5ML/HR UNTIL SEEN BY CRUSHER MACHINE OPERATOR. VSS.
--- NOTE | 2018-09-24 07:15 | NUR ---
RECEIVED PT IN BED AAOX4 RESP UNLABORED SKIN W/D COLOR WNL VERY COUNCIL AT BEDSIDE NAD NOTED
[2018-09-24 08:44] VITALS: BP 112/66
[2018-09-24 13:19] VITALS: BP 109/65
[2018-09-24] MEDS ORDERED: NORVASC2.5 MG PO (14:37)
[2018-09-24 15:27] LABS: CKMB 0.7 U/L (0.0-3.6); CREATINE KINASE 49 UL (21-215); TROPONIN-I 0.024 ng/mL (0.000-0.060)
[2018-09-24 16:29] VITALS: BP 135/83
--- NOTE | 2018-09-24 18:19 | NUR ---
SCDs ON AND PATENT
[2018-09-24 20:00] VITALS: BP 143/95
--- NOTE | 2018-09-24 20:34 | NUR ---
SPOUSE OUT TO NURSE WITH CONCERNS THAT BP DIASTOLIC IS 95. CONVINCED THAT PT WAS GIVEN A BP PILL EARLIER TODAY. THE ONLY MED PATIENT WAS GIVEN ORALLY WAS PROTONIX. SPOUSE IS BESIDE HIMSELF WITH WORRY THAT HIS CANNOT TOLERATE A BP THAT HIGH AND THE IT IS "WORRYING HER TO NO END". EXPLAINED THE CARDIZEM DRIP IN USE WILL ALSO SLOWLY BRING HER BP DOWN AND THAT ALL IS BEING MONITORED. SPOUSE WAS THEN ASKED IF PT WOULD AGREE TO LET NURSE MOVE IV FROM LEFT A/C TO A BETTER SITE DUE TO C/O FREQUENT BEEPING OF MACHING. SPOUSE STATES THAT WOULD INVOLVE ANOTHER "STICK" AND HIS JUST CANNOT TOLERATE THAT. WILL CONTINUE TO ENCOURAGE RELOCATION OF IV, REINFORCE PURPOSE OF MEDS AND TRY TO DIMINISH PATIENT'S ONGOING LEVEL OF ANXIETY. CURRENTLY FLUTTER 102 PER TELEMETRY.
[2018-09-24 21:52] LABS: CKMB 0.8 U/L (0.0-3.6); CREATINE KINASE 41 UL (21-215); TROPONIN-I 0.045 ng/mL (0.000-0.060)
--- NOTE | 2018-09-24 22:08 | NUR ---
IV BEEPING. COAXED PT INTO ALLOWING NURSE TO PLEASE LET IV BE RESITED. PT VERY NERVOUS/AMBIVALENT AND FEARFUL. PLACED 22 G TO RFA X 1 ATTEMPT AND RESTARTED CARDIZEM DRIP AT 5ML/HR TO NEW SITE. ALSO HAS NS @ 20ML/HR INFUSING TO SITE. ONCE IV WAS IN PLACE, REMOVED IV TO LEFT A/C AND PT WAS VERY HAPPY. REMAINS AT BEDSIDE DUE TO PT NOT BEING ABLE TO HEAR AND BECAUSE SHE IS SO VERY TIMID AND EASILY FRIGHTENED.
[2018-09-25] VITALS: BP 120/75
[2018-09-25 04:12] LABS: BASOPHILS 0.6 % (0-2); EOSINOPHILS 4.6 % (0-7); HEMATOCRIT 38.2 % (36.0-48.0); LYMPHOCYTES 33.3 % (15-50); MCH 31.5 pg (26.0-34.0); MCV 92.5 fL (80.0-100.0); MEAN PLATELET VOLUME 11.2 fL (7.4-10.4); MONOCYTES 13.6 % (2-11); NEUTROPHILS 47.9 % (40-80); PLATELET COUNT 208 10x3/uL (130-400); RBC 4.13 10x6/uL (4.00-5.40); RDW 14.4 % (11.5-14.5); WBC 5.4 10x3/uL (4.8-10.8)
[2018-09-25 04:13] VITALS: BP 124/60
[2018-09-25 04:38] LABS: ALBUMIN 3.4 g/dL (3.4-5.0); ALKALINE PHOSPHATASE 58 U/L (46-116); ALT (SGPT) 17 U/L (10-68); BILIRUBIN - TOTAL 0.29 mg/dL (0.2-1.3); CALC OSMOLALITY 279 mosm/kg (275-300); CALCIUM 8.9 mg/dL (8.5-10.1); CARBON DIOXIDE 25.9 mmol/L (21.0-32.0); CHLORIDE - SERUM 106 mmol/L (98-107); CKMB 0.8 U/L (0.0-3.6); CREATINE KINASE 48 UL (21-215); MAGNESIUM - SERUM 2.2 mg/dL (1.8-2.4); POTASSIUM - SERUM 3.7 mmol/L (3.5-5.1); PROTEIN - SERUM 6.6 g/dL (6.4-8.2); SODIUM 139 mmol/L (136-145); TROPONIN-I 0.037 ng/mL (0.000-0.060); UREA NITROGEN 17 mg/dL (7-18); eGFR NON AFRICAN AMERICAN 55 mL/min (90-120)
[2018-09-25 04:41] LABS: GLUCOSE 95 mg/dL (74-106)
--- NOTE | 2018-09-25 05:38 | NUR ---
PT SLEPT WELL THIS SHIFT. NO CHANGE FROM INITIAL SHIFT ASSESSMENT. IV CARDIZEM INFUSING, STILL SHOWING FLUTTER 90-110. AT BEDSIDE. NO REPORTS OF PAIN OR DISCOMFORT.BED LOW, CALL LIGHT IN REACH. CPOC.
--- NOTE | 2018-09-25 08:57 | NUR ---
TELEMETRY FLUTTER. HR 126. UP AMBULATING WITH PT ASSIST. WILL MONITOR.
--- NOTE | 2018-09-25 10:56 | NUR ---
CONVERTED TO ST. HR 115. WILL CONT. PLAN OF CARE.
[2018-09-25 11:00] VITALS: BP 114/86
--- NOTE | 2018-09-25 14:47 | MORECARE ---
CASE MANAGEMENT DISCHARGE SUMMARY PATIENT: SUZANNE LUIS UNIT: [id number] ADM DATE: 09/23/18 AGE: 87 : [birth year] SEX: F ROOM/BED: D.3502 AUTHOR: BENNIE,DOC PHYSICIAN: REFERRING PHYSICIAN: JEN SMART MD DATE OF SERVICE: 09/25/18 Discharge Plan Patient Name: SUZANNE LUIS Facility: [facility]:[place] : 1930 Planned Disposition: Home Anticipated Discharge Date: Discharge Date: Expected LOS: Initial Reviewer: [email or web address] Initial Review Date: 09/25/2018 Generated: 09/25/18 3:47 pm DCP- Discharge Planning Updated by [email or web address]: Angie Juarez on 09/25/18 1:[address] Patient Name: SUZANNE ULIS Admission Status: ER Accout number: [id number] Admission Date: 09-23-2018 : 1930 Admission Diagnosis: Attending: JEN SMART Current LOS: 2 Anticipated DC Date: Planned Disposition: Home Primary Insurance: [employer] CHOICE PPO MCR ADVANT Discharge Planning Comments: CM met with patient to complete initial dc planning assessment. CM educated patient on the CM role and verbal consent given by patient to complete assessment. CM verified patient's address, phone number, and emergency contact phone numbers. Patient lives at home alone and reports she is independent in her care. At discharge patient plans to return home and feels this is a safe discharge. CM discussed availability of home health, rehab services, and medical equipment. Patient denied known discharge needs at this time.. . CM will continue to follow and will assist as needed with dc plans/needs. Corrections Unit Supervisor: Angie Juarez DCPIA - Discharge Planning Initial Assessment Updated by [email or web address]: Angie Juarez on 09/25/18 2:40 pm * Is the patient Alert and Oriented? Yes * How many steps to enter\exit or inside your home? * PCP pickett * Pharmacy [facility] * Preadmission Environment Home with Family * ADLs Independent * List name and contact numbers for known caregivers / representatives who currently or will assist patient after discharge: Vincent [phone] * Verbal permission to speak to the caregivers and representatives has been obtained from the patient. Yes * Additional services required to return to the preadmission environment? No * Can the patient safely return to the preadmission environment? Yes * Has this patient been hospitalized within the prior 30 days at any hospital? No Patient Name: SUZANNE LUIS Page [id number] at 1447 All edits/amendments must be made on the electronic document DICTATION DATE: 09/25/181446 USABILITY SPECIALIST: MILANA 09/25/181446 RPT#: [id number] DC DATE: STATUS: ADM IN [facility] [address] [place] [address] END OF REPORT
[2018-09-25 15:00] VITALS: BP 120/75
--- NOTE | 2018-09-25 19:30 | NUR ---
RESUMING PATIENT CARE. PATIENT IS ALERT AND ORIENTED. RESTING COMFORTABLY IN BED. RESPIRATIONS ARE EVEN AND UNLABORED. PATIENT REQUESTED THAT THE IV IN THE R AC BE REMOVED. PATIENT HAS IV IN RIGHT FOREARM PATENT. R AC IV WAS REMOVED. MAGNESIUM CITRATE ORDERED FOR 1914. PATIENT DID NOT WANT TO TAKE IT AT THIS TIME BECAUSE SHE WAS AFRAID SHE WOULD BE UP ALL NIGHT. SYLVIA PAZ ON FLOOR AND INFORMED OF THIS. MAGNESIUM CITRAT NOW ORDERED FOR AM. PATIENT WOULD LIKE TO TAKE IT WHEN SHE LEAVES TO GO HOME.
[2018-09-25 20:00] VITALS: BP 143/88
[2018-09-26 00:18] VITALS: BP 148/94
[2018-09-26 04:00] VITALS: BP 130/76
[2018-09-26 06:01] LABS: BASOPHILS 0.7 % (0-2); EOSINOPHILS 5.1 % (0-7); HEMATOCRIT 38.8 % (36.0-48.0); HEMOGLOBIN 13.2 g/dL (12-16); IMMATURE GRANULOCYTES 0.2 % (0-5); LYMPHOCYTES 31.3 % (15-50); MCH 31.2 pg (26.0-34.0); MCV 91.7 fL (80.0-100.0); MONOCYTES 13.6 % (2-11); NEUTROPHILS 49.1 % (40-80); PLATELET COUNT 202 10x3/uL (130-400); RBC 4.23 10x6/uL (4.00-5.40); RDW 14.2 % (11.5-14.5); WBC 5.5 10x3/uL (4.8-10.8)
[2018-09-26 06:36] LABS: ALBUMIN 3.4 g/dL (3.4-5.0); BILIRUBIN - TOTAL 0.32 mg/dL (0.2-1.3); CALCIUM 9.1 mg/dL (8.5-10.1); CARBON DIOXIDE 25.7 mmol/L (21.0-32.0); CREATININE - SERUM 1.1 mg/dL (0.6-1.3); MAGNESIUM - SERUM 2.1 mg/dL (1.8-2.4); POTASSIUM - SERUM 3.7 mmol/L (3.5-5.1); PROTEIN - SERUM 6.3 g/dL (6.4-8.2)
--- NOTE | 2018-09-26 10:25 | NUR ---
DR BECK NOTIFIED OF HR. NEW ORDERS GIVEN. WILL MONITOR.
[2018-09-26 12:00] VITALS: BP 134/90
--- NOTE | 2018-09-26 14:00 | NUR ---
[facility] WITH ASSIST.
--- NOTE | 2018-09-26 14:19 | NUR ---
OT NOTE: MADE SEVERAL ATTEMPTS TO SEE PT IN PM, HOWEVER, SHE WAS IN THE BATHROOM FOR LONG TIME, THEN STATED THAT SHE WAS HAVING PROBLEMS AND THAT THERAPY WOULD HAVE TO ATTEMPT LATER. WILL TRY AGAIN TOMMORROW. JOSE PITT, OTR/L
[2018-09-26 15:45] VITALS: BP 143/96
--- NOTE | 2018-09-26 19:26 | NUR ---
RESUMING PATIENT CARE. PATIENT IS ALERT AND ORIENTED. PATIENT USING RESTROOM. PATIENT RESPIRATIONS ARE EVEN AND UNLABORED. NO S/S OF DISTRESS. NO C/O PAIN. CALL LIGHT WITHIN REACH. WILL CPOC.
[2018-09-26 20:00] VITALS: BP 148/79
[2018-09-27] VITALS: BP 125/82
[2018-09-27 04:00] VITALS: BP 118/63
[2018-09-27 06:58] LABS: BASOPHILS 0.6 % (0-2); EOSINOPHILS 3.3 % (0-7); HEMATOCRIT 37.7 % (36.0-48.0); HEMOGLOBIN 12.9 g/dL (12-16); IMMATURE GRANULOCYTES 0.2 % (0-5); LYMPHOCYTES 32.8 % (15-50); MCH 31.6 pg (26.0-34.0); MCHC 34.2 g/dL (31.0-37.0); MCV 92.4 fL (80.0-100.0); MEAN PLATELET VOLUME 11.1 fL (7.4-10.4); MONOCYTES 11.5 % (2-11); NEUTROPHILS 51.6 % (40-80); PLATELET COUNT 225 10x3/uL (130-400); RBC 4.08 10x6/uL (4.00-5.40); RDW 14.6 % (11.5-14.5); WBC 5.2 10x3/uL (4.8-10.8)
[2018-09-27 07:27] LABS: ALBUMIN 3.2 g/dL (3.4-5.0); ANION GAP 10.3 mmol/L (8-16); BILIRUBIN - TOTAL 0.43 mg/dL (0.2-1.3); CALCIUM 8.8 mg/dL (8.5-10.1); CARBON DIOXIDE 27.2 mmol/L (21.0-32.0); CREATININE - SERUM 1.1 mg/dL (0.6-1.3); MAGNESIUM - SERUM 2.6 mg/dL (1.8-2.4); POTASSIUM - SERUM 3.5 mmol/L (3.5-5.1); PROTEIN - SERUM 6.4 g/dL (6.4-8.2)
[2018-09-27 09:55] VITALS: BP 110/62
[2018-09-27 12:53] VITALS: BP 144/82
--- NOTE | 2018-09-27 14:52 | NUR ---
OT NOTE: PT ABLE TO AMB TO AND FROM BATHROOM WITH CGA. ABLE TO PERFORM TOILETING INDEP AND CGA WIHT CLOTHING MGMT. STATES THAT WAS VERY WEAK YESTERDAY SECONDARY TO BEING UP AND DOWN TO BATHROOM WITH LAXATIVE. PT PERFORMING SIMPLE GROOMING AND DRESSING, HOWEVER, DOES FATIGUE QUICKLY. DISCUSSED REHAB OPTIONS, HOWEVER, PT IS GOING HOME. SHE DOES NOT WANT THERAPY AND STATES THAT THEY HAVE BEEN GETTING BY [facility] AT HOME. EXTENSIVE TIME SPENT IN ROOM TODAY. JOSE PITT, OTR/L
[2018-09-27 16:44] VITALS: BP 118/73
[2018-09-27 20:00] VITALS: BP 160/94
[2018-09-28] VITALS (26 sets, daily range): BP systolic 102–162; BP diastolic 47–87; Ht 157.5 cm; Wt 52.2 kg
--- NOTE | 2018-09-28 02:56 | NUR ---
PATIENT STARTED HER FIRST DOSE OF BETAPACE AT HS. ALERT BY [facility] THAT THE THE PATIENT WAS HAVING 20 TO 30 SECOND PAUSES THAT WERE BECOMING MORE FREQUENTLY. PAGED DR. HDZ. RECEIVED CALL BACK INFORMED HIM OF THE SITUATION. ORDERS GIVEN TO STOP BETAPACE. PRIOR TO DR. HDZ RETURNING CALL RAPID RESPONSE. CALLED. VITALS. EKG OBTAINED. TOLD ICU WHAT ORDERS WERE GIVEN FROM DR. HDZ. SHE SAID SHE WAS GOING TO CALL SYLVIA PAZ AND CALL ME BACK. PATIENT AT THIS TIME IS ALERT AND ORIENTED. RESPIRATIONS ARE EVEN AND UNLABORED. NO S/S OF DISTRESS. WHEN TALKING TO PATIENT PATIENT STATED THAT HE HAD GIVEN PATIENT 1/2 OF XANAX. THIS NURSE WAS UNAWARE OF GIVING PATIENT MEDICATION.
--- NOTE | 2018-09-28 03:25 | NUR ---
RECEIVED PATIENT FROM MED SURG 2 INTO ROOM 2311 ACCOMPANIED BY [facility] STAFF. TRANSFERRED TO ICU BED. MONITORS CONNECTED TO PATIENT WITH ALARMS SET. VSS AT THIS TIME. ASSESSMENT COMPLETED PER FLOW SHEET. AT BEDSIDE. PATIENT AWAKE ALERT AND COMMUNICATING WITH THIS RN. ORIENTED X 4 WITH CLEAR SPEECH. PATIENT ORIENTED TO ROOM AND ICU VISITING SCHEDULE. CALL LIGHT WITH IN EASY REACH AND ABLE TO UTILIZE TO MAKE NEEDS KNOWN.
--- NOTE | 2018-09-28 03:35 | NUR ---
DR. HDZ NOTIFIED OF THIRD DEGREE BLOCK AT RATE OF 20-30'S, BLOOD PRESSURE WITHIN NORMAL LIMITS. NO NEW ORDERS RECEIVED AT THIS TIME. WILL CONTINUE TO MONITOR.
--- NOTE | 2018-09-28 03:39 | NUR ---
PATIENT TRANSFERED TO ICU
[2018-09-28 04:29] LABS: BASOPHILS 0.4 % (0-2); EOSINOPHILS 2.1 % (0-7); HEMATOCRIT 41.4 % (36.0-48.0); IMMATURE GRANULOCYTES 0.1 % (0-5); LYMPHOCYTES 29.2 % (15-50); MCH 31.4 pg (26.0-34.0); MCHC 33.8 g/dL (31.0-37.0); MCV 92.8 fL (80.0-100.0); MONOCYTES 12.4 % (2-11); NEUTROPHILS 55.8 % (40-80); PLATELET COUNT 234 10x3/uL (130-400); RBC 4.46 10x6/uL (4.00-5.40); RDW 14.4 % (11.5-14.5)
--- NOTE | 2018-09-28 05:00 | NUR ---
PATIENT AWAKE, ALERT AND ORIENTED X 4. HEART RATE CONTINUES 30-80 AND IRREGULAR
[2018-09-28 05:06] LABS: ALBUMIN 3.5 g/dL (3.4-5.0); ANION GAP 12.4 mmol/L (8-16); BILIRUBIN - TOTAL 0.47 mg/dL (0.2-1.3); CALCIUM 9.1 mg/dL (8.5-10.1); CARBON DIOXIDE 26.6 mmol/L (21.0-32.0); CREATININE - SERUM 1.1 mg/dL (0.6-1.3); MAGNESIUM - SERUM 2.6 mg/dL (1.8-2.4)
--- NOTE | 2018-09-28 08:33 | NUR ---
DENTAL CREAM MAKER AT BEDSIDE SPEAKING WITH PT AND PTS . NOTED PT TO HAVE PERMANENT PACEMAKER PLACED TODAY. ALL QUESTIONS AND CONCERNS ADDRESSED BY PHYSICIAN. NO ACUTE DISTRESS NOTED. WILL CONTINUE PLAN OF CARE.
--- NOTE | 2018-09-28 10:01 | NUR ---
RUBI PLACED AT THIS TIME PER PHYSICIAN ORDERS; NOTED BEFORE RUBI PLACEMENT NOTED 897 ML RESUDUAL NOTED PER BLADDER SCANNER, BLADDER ALSO DISTENDED. PER DR JACQUES PLACE RUBI FOR RETENTION. RUBI PLACED PER STERILE PROCEDRE, 16 YEMENI, 900ML CLEAR YELLOW URINE NOTED DRAINING TO CLOSED CONTAINER. NO ACUTE DISTRESS NOTED. AT BEDSIDE. WILL CONTINUE PLAN OF CARE.
--- NOTE | 2018-09-28 11:25 | NUR ---
UP IN BED RESTING AT THIS TIME, EYES CLOSED. NO ACUTE DISTRESS NOTED. RESPIRATIONS STEADY AND UNLABORED. AWAKENS EASILY WHEN SPOKEN TO. WILL CONTINUE PLAN OF CARE.
--- NOTE | 2018-09-28 11:58 | NUR ---
HEART RATE JACQUIE DOWN TO 33 SINUS JACQUIE, EXTERNAL PACEMAKER PLACED WITH RATE OF [address] VAZQUEZ. RHYTHM 64 PACED.
--- NOTE | 2018-09-28 12:01 | NUR ---
PER DR BARBER, SINCE BP IS FINE TURN EXTERNAL PACER DOWN TO RATE OF 30 AND OKAY TO GIVE 1 OF ATROPINE IF NEEDED. ORDERS PLACED. AT BEDSIDE. WILL CONTINUE PLAN OF CARE.
--- NOTE | 2018-09-28 13:11 | NUR ---
HEART RATE PACED AT 40, PT C/O DIZZINESS AND FEELING AWFUL, BLOOD PRESSURE TRENDING DOWN TO 105/56. DR BARBER PAGED AND NOTIFIED, STATED WILL GET PT IN SURGERY PRETTY SOON AND TO ADMIN 1 AMP CALCIUM GLUCONATE. ORDER PLACED.
--- NOTE | 2018-09-28 13:44 | NUR ---
LEFT AT THIS TIME FOR PERMANENT PACEMAKER PLACEMENT VIA BED ACCOMPANIED BY HOSPITAL STAFF WITH EXTERNAL PACEMAKER AND MONITORING EQUIPMENT. PT ALERT. NO ACUTE DISTRESS NOTED. AT BEDSIDE. RHYTHM 40 PACED.
--- NOTE | 2018-09-28 14:32 | NUR ---
PER DR BARBER, DC ALL CARIAC MEDS EXCEPT LABETALOL 100 BID.
--- NOTE | 2018-09-28 14:39 | NUR ---
PER [facility]
--- NOTE | 2018-09-28 14:50 | NUR ---
RETURNED FROM PROCEDURE AT THIS TIME. NO ACUTE DISTRESS NOTED. VSS. HEART RATE 60 PACED. FAMILY UPDATED AND AT BEDSIDE. WILL CONTINUE TO CLOSELY OBSERVE.
--- NOTE | 2018-09-28 15:12 | NUR ---
TEMP 92.6 BEAR HUGGER PLACED. ALSO NOTED PT MOVING LT ARM TO TOUCH FACE, TEACHINGS PROVIDED FOR PT TO NOT RAISE LT ARM SINCE PACEMAKER WAS PLACED TO THAT SIDE (SLING IN PLACE). PT STATES SHE WILL NOT RAISE LT ARM. WILL CONTINUE TO CLOSELY OBSERVE.
--- NOTE | 2018-09-28 15:14 | NUR ---
TEACHING PROVIDED AGAIN REGARDING NOT RAISING LT ARM, PT NOTED TOUCHING FACE WITH LT ARM. FAMILY AT BEDSIDE WATCHING PT TO REMIND HER TO NOT RAISE LT ARM. WILL CONTINUE TO CLOSELY OBSERVE.
--- NOTE | 2018-09-28 15:22 | NUR ---
SHOULDER IMMOBOLIZER ORDERED FOR PT TO HELP REMIND PT TO NOT RAISE LT ARM.
--- NOTE | 2018-09-28 16:45 | NUR ---
NO ACUTE DISTRESS NOTED. LYING IN BED AWAKE AT THIS TIME, AT BEDSIDE. CALL LIGHT IN REACH. WILL CONTINUE TO OBSERVE.
--- NOTE | 2018-09-28 17:06 | NUR ---
PT STILL SHIVERING AFTER WARM BLANKET PROVIDED TO PT. TEMP 97.1. BEAR HUGGER PROVIDED, PT STATES HE IS STARTING TO FEEL WARMER. VSS. WILL CONTINUE TO OBSERVE.
--- NOTE | 2018-09-28 17:55 | NUR ---
IMMOBOLIZER PLACED TO LT ARM TO HELP PT TO REMEMBER TO NOT RAISE ARM. AFTER MULTIPLE ATTEMPTS BY NURSING STAFF AND PTS FAMILY TO NOT RAISE ARM PT STILL NOTING TO FORGET AND REQUIRE NEW TEACHINGS ALONG WITH CLOSE OBSERVATION BY STAFF AND TO NOT RAISE ARM. IMMOBOLIZER IN PLACE TO HELP PROTECT PLACEMENT OF PERMANENT PACEMAKER WHICH WAS PLACED TODAY. ALSO PARTIAL LINEN CHANGE PROVIDED. FAMILY AT BEDSIDE. NO ACUTE DISTRESS NOTED. WILL CONTINUE PLAN OF CARE.
--- NOTE | 2018-09-28 18:44 | NUR ---
UP IN BED EATING SUPPER WITH ASSIST FROM PTS AT THIS TIME. NO ACUTE DISTRESS NOTED. WILL CONTINUE PLAN OF CARE.
--- NOTE | 2018-09-28 19:00 | NUR ---
SHIFT ASSESMENT COMPLETE. VS STABLE AND AFEBRILE. RESPIRATIONS EVEN AND UNLABORED. NO VISUAL CUES OF DISTRESS NOTED. WILL CONTINUE TO MONITOR.
--- NOTE | 2018-09-28 21:00 | NUR ---
VS STABLE AND AFEBRILE. RESPIRATIONS EVEN AND UNLABORED. NO VISUAL CUES OF DISTRESS NOTED. WILL CONTINUE TO MONITOR.
--- NOTE | 2018-09-28 23:00 | NUR ---
VS STABLE AND AFEBRILE. RESPIRATIONS EVEN AND UNLABORED. NO VISUAL CUES OF DISTRESS NOTED. WILL CONTINUE TO MONITOR.
[2018-09-29] VITALS (11 sets, daily range): BP systolic 124–139; BP diastolic 53–67
[2018-09-29 03:57] LABS: BASOPHILS 0.3 % (0-2); EOSINOPHILS 1.3 % (0-7); HEMATOCRIT 33.2 % (36.0-48.0); IMMATURE GRANULOCYTES 0.3 % (0-5); LYMPHOCYTES 24.7 % (15-50); MCH 31.3 pg (26.0-34.0); MCHC 32.8 g/dL (31.0-37.0); MEAN PLATELET VOLUME 10.9 fL (7.4-10.4); MONOCYTES 13.5 % (2-11); NEUTROPHILS 59.9 % (40-80); RDW 14.9 % (11.5-14.5); WBC 7.1 10x3/uL (4.8-10.8)
[2018-09-29 04:05] LABS: HEMOGLOBIN 10.9 g/dL (12-16); MCV 95.4 fL (80.0-100.0); PLATELET COUNT 182 10x3/uL (130-400); RBC 3.48 10x6/uL (4.00-5.40)
[2018-09-29 04:23] LABS: ALBUMIN 2.8 g/dL (3.4-5.0); ANION GAP 13.2 mmol/L (8-16); BILIRUBIN - TOTAL 0.3 mg/dL (0.2-1.3); CALCIUM 8.7 mg/dL (8.5-10.1); CARBON DIOXIDE 22.2 mmol/L (21.0-32.0); CREATININE - SERUM 1.3 mg/dL (0.6-1.3); MAGNESIUM - SERUM 2.2 mg/dL (1.8-2.4); POTASSIUM - SERUM 4.4 mmol/L (3.5-5.1); PROTEIN - SERUM 5.5 g/dL (6.4-8.2)
--- NOTE | 2018-09-29 06:00 | NUR ---
VS STABLE AND AFEBRILE. RESPIRATIONS EVEN AND UNLABORED. NO VISUAL CUES OF DISTRESS NOTED. WILL CONTINUE TO MONITOR.
--- NOTE | 2018-09-29 09:16 | NUR ---
VS STABLE AND AFEBRILE. RESPIRATIONS EVEN AND UNLABORED. NO VISUAL CUES OF DISTRESS NOTED. WILL CONTINUE TO MONITOR.
--- NOTE | 2018-09-29 09:43 | NUR ---
Nutrition follow-up: Pacemaker placed Diet: low sodium PO intake is usually good Labs reviewed Wt: 115# RDN following.
[2018-09-29] MEDS ORDERED: NORMODYNE / TR100 MG PO (12:25)
--- NOTE | 2018-09-29 14:25 | NUR ---
0700 REPORT RECIEVED AND CARE ASSUMED , PT IS AWAKE AND IS AT THE BEDSIDE.. PT IS KLETSEL DEHE [place] AND WITH SOME CONFUSION .. ANSWERS QUESTIONS AND IS RELAYING TO THE PATIENT WHAT IS GOING ON AND BEING SAID.. PT IS WITH SLING ON LEFT ARM HEART MONITOR SHOWING PACED RYTHM DRESSING ON LEFT UPPER CHEST OVER PACEMAKER IS CDI 0800 BREAKFAST TRAY SERVED AND IS ASSISTING PT WITH MEAL... 0830 [employer] REP HERE AND INTERIGATING THE PACEMAKER 0900 SMALL AMOUNT OF BREAKFAST CONSUMED.. PT STATING THAT SHE WANTS TO GO HOME... STATES THAT HE GAVE THE PATIENT ONE OF HIS SYNTHROID TABLETS THIS MORNING SINCE HE KNEW SHE NEEDED IT.. 1030 MEDS GIVEN AND PATIENT IS WITHOUT CHNAGES . REMAINS PACED RYTHM 1200 DR JACQUES
--- NOTE | 2018-09-29 14:33 | NUR ---
1200 DR JACQUES IN TO SEE PT.. UPDATE GIVEN ORDER RECIEVED TO DC HOME .. DR BARBER CALLED IN LEAD QA ANALYST OK TO DC HOME.. FOLOW UP IN 1 MONTH WITH ASHKAN 1215 LUNCH SERVED AND ASSISTING PT WITH MEAL... 1300 BATH GIVEN AND RUBI CATH REMOVED.. PIV DCd BILATERALLY 1330 DICHARGE PAPERWORK GIVEN TO TO AND REVIEWED, IMPORTANCE FOR PATIENT TO WEAR SLING STRESSED AND INSTRUCTIONS GIVEN TO APPLICATION AND FITTING OF SLING TO HIM.. 1400 PT DC HOME AND ASSISTED INTO PRIVATE CAR DRIVING..
--- NOTE | 2018-09-29 17:23 | MORECARE ---
CASE MANAGEMENT DISCHARGE SUMMARY PATIENT: SUZANNE LUIS UNIT: [id number] ADM DATE: 09/23/18 AGE: 87 : [birth year] SEX: F ROOM/BED: D.2311 AUTHOR: BENNIE,DOC PHYSICIAN: REFERRING PHYSICIAN: JEN SMART MD DATE OF SERVICE: 09/29/18 Discharge Plan Patient Name: SUZANNE LUIS Facility: [facility]:[place] : 1930 Planned Disposition: Home Anticipated Discharge Date: Discharge Date: 09/29/2018 Expected LOS: Initial Reviewer: [email or web address] Initial Review Date: 09/25/2018 Generated: 09/29/18 6:23 pm Comments DCP- Discharge Planning Updated by [email or web address]: Jennifer Cottrell on 09/29/18 4:[address] Patient Name: SUZANNE LUIS Encounter No: [id number] : 1930 Primary Insurance: [employer] CHOICE PPO MCR ADVANT Anticipated DC Date: Planned Disposition: Home External Planned Provider: : REFUSED HOME HEALTH SERVICES AND D/C IMM 09/29/18 @ 1232 DCP follow-up note: Patient and family in agreement with discharge plan. No changes to plan. Case management will follow and assist as needed. Jennifer Cotterll DCP- Discharge Planning Updated by [email or web address]: Angie Juarez on 09/25/18 1:[address] Patient Name: SUZANNE LUIS Admission Status: ER Accout number: [id number] Admission Date: 09-23-2018 : 1930 Admission Diagnosis: Attending: JEN SMART Current LOS: 2 Anticipated DC Date: Planned Disposition: Home Primary Insurance: [employer] CHOICE PPO MCR ADVANT Discharge Planning Comments: CM met with patient to complete initial dc planning assessment. CM educated patient on the CM role and verbal consent given by patient to complete assessment. CM verified patient's address, phone number, and emergency contact phone numbers. Patient lives at home alone and reports she is independent in her care. At discharge patient plans to return home and feels this is a safe discharge. CM discussed availability of home health, rehab services, and medical equipment. Patient denied known discharge needs at this time.. . CM will continue to follow and will assist as needed with dc plans/needs. Site Supervisor: Angie Juarez DCPIA - Discharge Planning Initial Assessment Updated by [id number]: Angie Juarez on 09/25/18 2:40 pm * Is the patient Alert and Oriented? Yes * How many steps to enter\exit or inside your home? * PCP pickett * Pharmacy [facility] * Preadmission Environment Home with Family * ADLs Independent * List name and contact numbers for known caregivers / representatives who currently or will assist patient after discharge: Vincent [phone] * Verbal permission to speak to the caregivers and representatives has been obtained from the patient. Yes * Additional services required to return to the preadmission environment? No * Can the patient safely return to the preadmission environment? Yes * Has this patient been hospitalized within the prior 30 days at any hospital? No Coverage Notice Reviewer: [email or web address] Shanika Cottrell Notice Issued Date-Time: 09/29/2018 12:32 Notice Type: IM Discharge Notice Notice Delivered To: Family Member Relationship to Patient: Spouse Clinical Applications Manager Name: VINCENT LUIS Delivery Method: HAND - Hand Delivered Maryjane Days: Prior Verbal Notification: Recipient Understood Notice: Yes Recipient Signature: Yes Med Rec Note Co-signed by Attending: Coverage Notice Comment: Reviewer: [id number] Cottrell Notice Issued Date-Time: 09/29/2018 17:11 Notice Type: Patient Choice Letter Notice Delivered To: Family Member Relationship to Patient: Spouse Clinical Applications Manager Name: VINCENT LUIS Delivery Method: HAND - Hand Delivered Maryjane Days: Prior Verbal Notification: Recipient Understood Notice: Yes Recipient Signature: Yes Med Rec Note Co-signed by Attending: Coverage Notice Comment: PATIENT AND SPOUSE REFUSED HOME HEALTH SERVICES Last DP export: 09/25/18 1:47 p Patient Name: SUZANNE LUIS Page [id number] at 1723 All edits/amendments must be made on the electronic document DICTATION DATE: 09/29/181722 MANAGER LINE: MILANA 09/29/181722 RPT#: [id number] DC DATE:09/29/18 STATUS: DIS IN [facility] [address] [place] [address] END OF REPORT
--- NOTE | 2018-10-02 08:31 | OP ---
PATIENT NAME: SUZANNE LUIS MEDICAL RECORD: [id number] :[birth year] LOCATION:[facility] D.2311 ADMISSION DATE:09/23/18 SURGEON: BETITO BARBER MD DATE OF OPERATION: 09/28/2018 PROCEDURE: Lead portion of permanent pacemaker placement, single lead. INDICATION: Sick sinus syndrome with marked pauses of greater than 3 seconds/tachybrady syndrome. DESCRIPTION OF PROCEDURE: After left subclavian was cannulated via modified Seldinger technique via Dr. Lynn, under fluoroscopic guidance, I placed the RV lead in the RV apex without difficulty. After adequate R waves and thresholds were obtained, the lead was attached to the unipolar lead on the generator and the pocket was closed. IMPRESSION: Successful lead portion of VVI pacemaker. ESTIMATED BLOOD LOSS: Minimal. DISPOSITION: To the floor, stable. TRANSINT:[id number] Voice Confirmation ID: [id number] DOCUMENT ID: [id number] BETITO BARBER MD at 0831 CC: [id number] DICTATION DATE: 09/28/18 1500 TELLER VAULT: 09/28/18 1512 DIS IN 09/29/18 [facility] [address] [place] [address]
--- NOTE | 2018-10-06 12:15 | OP ---
PATIENT NAME: SUZANNE LUIS MEDICAL RECORD: [id number] :[birth year] LOCATION:[facility] D.2311 ADMISSION DATE:09/23/18 SURGEON: STEPHANIE ARANDA MD DATE OF OPERATION: 09/28/2018 PREOPERATIVE DIAGNOSES: 1. Symptomatic bradycardia. 2. Atrial fibrillation. POSTOPERATIVE DIAGNOSES: 1. Symptomatic bradycardia. 2. Atrial fibrillation. PROCEDURES: 1. Left subclavian vein single lead pacemaker placement. 2. Fluoroscopic interpretation. SURGEON: Stephanie Aranda MD CO-SURGEON: Julio Rajan MD REPORT OF OPERATION: The patient's left chest was prepped and draped in sterile fashion. A 20 mL of 1% lidocaine with epinephrine was infused into the surrounding tissues. A transverse incision was made on the superolateral aspect of the patient's left chest and a subcutaneous pouch was made over the pectoral fascia. A needle was then used to cannulate the left subclavian vein and a guidewire was advanced with ease. Fluoro was used to note that the wire was in good position in the venous system. A dilator trocar device was placed over the wire and the wire and dilator were removed. The lead was advanced through the trocar, and once it was in the venous system, then Dr. Rajan positioned it appropriately in the ventricle. Once it was noted to be functioning appropriately, then this was sutured into place with a #0 Ti-Cron. We affixed the lead to the pacemaker and placed it in the subcutaneous pouch. This pacemaker was sutured to the pectoral fascia using a single interrupted #0 Ti-Cron. We irrigated out the wound with antibiotic solution and then closed the subcutaneous tissues with interrupted 3-0 Vicryl. The skin was closed with running subcutaneous 5-0 Monocryl and dressed appropriately. COMPLICATIONS: None. CONDITION: Stable. ANESTHESIA: Local MAC. BLOOD LOSS: Minimal. TRANSINT:[id number] Voice Confirmation ID: [id number] DOCUMENT ID: [id number] OPERATIVE REPORT [id number] SUZANNE LUIS CHRISTIAN MD at 1215 CC: [id number] DICTATION DATE: 09/28/18 1517 DOMESTIC TRAVEL CONSULTANT: 09/28/18 1607 DIS IN 09/29/18 [facility] [id number] [place] [address]
== END 2018-09-29 14:10 | disposition home or self-care (01) | DRG 244 ==
LOC: D.ER 18:46 → D.M2 22:11 → D.ICU 09-28 03:26
PROVIDERS: Emergency Medicine; Family Medicine; Internal Medicine Interventional Cardiology; ADMIT Family Medicine; ATTEND Family Medicine
PROC: 02HK3JZ Insertion of Pacemaker Lead into Right Ventricle, Percutaneous Approach (ICD-10-PCS; 2018-09-28)
PROC: 02H63JZ Insertion of Pacemaker Lead into Right Atrium, Percutaneous Approach (ICD-10-PCS; 2018-09-28)
PROC: 0JH606Z Insertion of Pacemaker, Dual Chamber into Chest Subcutaneous Tissue and Fascia, Open Approach (ICD-10-PCS; principal; 2018-09-28 13:30)
DX: I49.5 Sick sinus syndrome (principal); I48.91 Unspecified atrial fibrillation; I10 Essential (primary) hypertension; E03.9 Hypothyroidism, unspecified; K21.9 Gastro-esophageal reflux disease without esophagitis; K59.09 Other constipation; F41.9 Anxiety disorder, unspecified

== ENCOUNTER 2018-10-03 13:26 | Emergency (ER) | payer MEDICARE ==
[~2018-10-03] VITALS: Ht 157.5 cm; Wt 47.7 kg
[~2018-10-03 13:26] MED LIST changes: +NORVASC2.5 MG PO
[2018-10-03 13:38] VITALS: Ht 157.5 cm; Wt 47.7 kg
[2018-10-03 13:54] LABS: BASOPHILS 0.3 % (0-2); HEMATOCRIT 33.8 % (36.0-48.0); HEMOGLOBIN 11.5 g/dL (12-16); IMMATURE GRANULOCYTES 0.2 % (0-5); LYMPHOCYTES 22.9 % (15-50); MCH 31.3 pg (26.0-34.0); MCV 92.1 fL (80.0-100.0); MEAN PLATELET VOLUME 10.1 fL (7.4-10.4); MONOCYTES 13.9 % (2-11); NEUTROPHILS 60.7 % (40-80); PLATELET COUNT 182 10x3/uL (130-400); RBC 3.67 10x6/uL (4.00-5.40); RDW 14.4 % (11.5-14.5)
[2018-10-03 13:58] LABS: ALBUMIN 3.4 g/dL (3.4-5.0); ALKALINE PHOSPHATASE 62 U/L (46-116); ALT (SGPT) 14 U/L (10-68); BILIRUBIN - TOTAL 0.42 mg/dL (0.2-1.3); CALC OSMOLALITY 280 mosm/kg (275-300); CALCIUM 9.4 mg/dL (8.5-10.1); CARBON DIOXIDE 28.4 mmol/L (21.0-32.0); CHLORIDE - SERUM 104 mmol/L (98-107); CREATININE - SERUM 1.2 mg/dL (0.6-1.3); GLUCOSE 113 mg/dL (74-106); POTASSIUM - SERUM 4.1 mmol/L (3.5-5.1); PROTEIN - SERUM 6.7 g/dL (6.4-8.2); SODIUM 140 mmol/L (136-145); UREA NITROGEN 16 mg/dL (7-18); eGFR NON AFRICAN AMERICAN 45 mL/min (90-120)
[2018-10-03 14:10] LABS: CKMB 0.5 U/L (0.0-3.6); CREATINE KINASE 89 UL (21-215); MAGNESIUM - SERUM 2.3 mg/dL (1.8-2.4); THYROID STIMULATING HORMONE 3.64 uIU/mL (0.36-3.74); TROPONIN-I < 0.017 ng/mL (0.000-0.060)
[2018-10-03 15:04] LABS: APTT 27.8 SECONDS (22.8-39.4)
[2018-10-03 15:12] LABS: INR 1.09 (0.85-1.17); PROTIME 13.6 SECONDS (11.6-15.0)
[2018-10-03 15:46] VITALS: BP 182/79
== END 2018-10-03 15:46 | disposition short-term general hospital (02) ==
LOC: D.ER 13:26
PROVIDERS: Family Medicine
DX: I63.9 Cerebral infarction, unspecified (principal); R47.01 Aphasia; G81.94 Hemiplegia, unspecified affecting left nondominant side

== ENCOUNTER → 2018-11-02 12:48 | Outpatient (CLI) | payer MEDICARE ==
[2018-10-03 13:38] VITALS: BMI 19.2
== END | disposition home or self-care (01) ==
LOC: D.RAD 12:48
PROVIDERS: ATTEND Legal Medicine
DX: R13.12 Dysphagia, oropharyngeal phase (principal)